=== PATIENT | female | born 1935 | race Caucasian/White ===

== ENCOUNTER → 2016-08-29 | Outpatient (CLI) | payer MEDICARE, BC ==
--- NOTE | 2016-08-30 09:43 | CR ---
EXAMINATION: Lumbar spine HISTORY: Low back pain COMPARISON: CT dated 06/30/2014 TECHNIQUE: AP and lateral views FINDINGS: There is stable bilateral fusion from L2 to S1. The osseous structures appear osteopenic. Interbody osseous fusion is noted at L5-S1. Overall the osseous structures are notable osteopenic. T he SI joints are symmetric. Bilateral partially visualized total hip hardware noted. There is a mild compression deformity at L1. IMPRESSION: 1. Mild compression deformity at L1, age indeterminate. 2. Stable posterior fusion from L2 to S1. 3. Generalized osteopenia.
== END | disposition home or self-care (01) ==
LOC: MW.CHPM 15:56
PROVIDERS: ATTEND Anesthesiology
DX: M54.5 Low back pain (principal); M43.8X6 Other specified deforming dorsopathies, lumbar region; M43.27 Fusion of spine, lumbosacral region; M85.88 Other specified disorders of bone density and structure, other site; M96.1 Postlaminectomy syndrome, not elsewhere classified; G89.4 Chronic pain syndrome; M54.17 Radiculopathy, lumbosacral region; Z87.39 Personal history of other diseases of the musculoskeletal system and connective tissue
CPT/HCPCS: 72100; 72100-26; 99214

== ENCOUNTER → 2016-09-26 | Outpatient (CLI) | payer MEDICARE, BC | LOC: MW.CHPM 08:00 | CPT/HCPCS: 99214 ==

== ENCOUNTER 2021-01-09 12:56 | Emergency (ER) | payer MEDICARE, BC ==
--- NOTE | 2021-01-09 13:04 | EDM.PDOC ---
ED HPI GENERAL MEDICAL PROBLEM - General Stated Complaint: FELL Time Seen by Provider: 01/09/21 13:00 Source of Information: Reports: Patient, EMS History Limitations: Reports: No Limitations - History of Present Illness INITIAL COMMENTS - FREE TEXT/NARRATIVE: 85-year-old female past medical history A. fib not on anticoagulation presents status post fall. History is from EMS and from patient. Patient states that she was making eggs for lunch when she turned around and fell. She landed on her back and did hit the back of her head. She was able to get up and was ambulatory after the fall. She is initially complaining of some back pain and notes that she has chronic back pain but states that the pain is since gone away. She denies any headaches. Denies any nausea or vomiting. Denies any on e-sided muscle weakness, facial droop, confusion, slurred speech, word finding difficulty. Denies any chest pain, shortness of breath, dizziness, lightheadedness before or after fall. lower back Pain Score (Numeric/FACES): 4 - Related Data Allergies Allergy/AdvReac Type Severity Reaction Status Date / Time No Known Allergies Allergy Verified 01/01/14 10:51 Home Meds: Home Meds Diltiazem [Cardizem CD] 180 mg PO DAILY 06/29/14 [History] Famotidine [Pepcid] 40 mg PO DAILY 06/29/14 [History] Hypromellose [Artificial Tears] 1 drop EYEBOTH TID 06/29/14 [History] Dextran 70/Hypromellose [Artificial Tears] 1 drop EYEBOTH TID 06/30/14 [History] polyethylene glycoL 3350 [MiraLAX] 17 gm PO DAILY 06/30/14 [History] carisoprodoL [Carisoprodol] 350 mg PO TID PRN #10 tablet 07/03/14 [Rx] FLUoxetine [PROzac] 01/09/21 [History] Pregabalin 01/09/21 [History] ED ROS GENERAL - Review of Systems Review Of Systems: Comprehensive ROS is negative, except as noted in HPI. ED EXAM, GENERAL - Physical Exam Exam: See Below Exam Limited By: No Limitations General Appearance: Alert, WD/WN, No Apparent Distress Eye Exam: Bilateral Eye: EOMI, PERRL Ears: Normal External Exam Nose: Normal Inspection Throat/Mouth: Normal Voice, No Airway Compromise Head: Atraumatic, Normocephalic Neck: Normal Inspection, Supple, Non-Tender Respiratory/Chest: No Respiratory Distress, Lungs Clear, Normal Breath Sounds, No Accessory Muscle Use Cardiovascular: Normal Peripheral Pulses, Regular Rate, Rhythm GI/Abdominal: Soft, Non-Tender Back Exam: Normal Inspection, Full Range of Motion. No: Vertebral Tenderness Extremities: Normal Inspection Neurological: Alert, Oriented, CN II-XII Intact, Normal Cognition, Normal Gait, No Motor/Sensory Deficits Psychiatric: Normal Affect, Normal Mood Skin Exam: Warm, Dry, Intact, Normal Color Course - Vital Signs Last Recorded V/S: Last Vital Signs Temp 98.1 F 01/09/21 14:12 Pulse 64 01/09/21 15:17 Resp 18 01/09/21 15:17 BP 149/67 H 01/09/21 15:17 Pulse Ox 97 01/09/21 15:17 - Re-Assessments/Exams Free Text/Narrative Re-Assessment/Exam: 01/09/21 13:04 Patient without signs of injury on physical exam. Considering patient's advanced age we will get head CT, cervical spine, lumbar spine CT imaging. We will follow up results and disposition accordingly. 01/09/21 15:[address] imaging; possible normal pressure hydrocephalus which was discussed with patient and recommend f/u PMD Departure - Departure Time of Disposition: 15:49 Disposition: Home, Self-Care 01 Condition: Good Clinical Impression: Fall Qualifiers: Encounter type: initial encounter Qualified Code(s): W19.XXXA - Unspecified fal l, initial encounter - Discharge Information Instructions: Chronic Back Pain Referrals: Kristofer Palmer MD [Primary Care Provider] - Additional Instructions: You were CT imaging does not show any evidence of bleeding in the brain, fractured bones, dislocated bones. Your head CT does show possible normal pr essure hydrocephalus. You should show these results to your primary care physician and discuss if they want to do any further work-up. The following information is given to patients seen in the emergency department who are being discharged to home. This information is to outline your options for follow-up care. We provide all patients seen in our emergency department with a follow-up referral. The need for follow-up, as well as the timing and circumstances, are variable depending upon the specifics of your emergency department visit. If you don't have a primary care physician on staff, we will provide you with a referral. We always advise you to contact your personal physician following an emergency department visit to inform them of the circumstance of the visit and for follow-up with them and/or the need for any referrals to a consulting specialist. The emergency department will also refer you to a specialist when appropriate. This referral assures that you have the opportunity for follow-up care with a specialist. All of these measure are taken in an effort to provide you with optimal care, which includes your follow-up. Under all circumstances we always encourage you to contact your private physician who remains a resource for coordinating your care. When calling for follow-up care, please make the office aware that this follow-up is from your recent emergency room visit. If for any reason you are refused follow-up, please contact the [facility] Emergency Department at and asked to speak to the emergency department charge nurse. Please follow up with your primary care physician. If you do not have a primary care physician, see below: [facility] [address] [place] [address] [id number] [facility] [address] [place] [id number] [facility] [address] [place] [id number] Sepsis Event Note (ED) - Focused Exam Vital Signs: Vital Signs Temp Pulse Resp BP Pulse Ox 01/09/21 15:17 64 18 149/67 H 97 01/09/21 14:12 98.1 F 68 18 155/72 H 98 01/09/21 13:10 97.6 F 68 18 160/69 H 98
--- NOTE | 2021-01-09 14:42 | CT ---
INDICATION: Trauma, fall with head injury. TECHNIQUE: CT head without contrast. COMPARISON: None. FINDINGS: CSF spaces: Moderate ventriculomegaly. Brain parenchyma and extra-axial spaces: Moderate atrophy. The walton-white differentiation is normal. No sign of mass, hemorrhage, or midline shift. No extra-axial fluid collection. Skull base and calvarium: The visualized paranasal sinuses and mastoid air cells demonstrate no acute or significant findings. The visualized orbits are grossly unremarkable. No skull fractures. IMPRESSION: No sign of acute injury. Moderate ventriculomegaly suggesting the possibility of normal pressure hydrocephalus. Please note that all CT scans at this facility use dose modulation, iterative reconstruction, and/or weight-based dosing when appropriate to reduce radiation dose to as low as reasonably achievable. Dictated by Bony Valladares MD @ 01/09/2021 2:40:[address] Bony Valladares @ Jan 09 2021 2:40PM
--- NOTE | 2021-01-09 14:46 | CT ---
INDICATION: Trauma, fall TECHNIQUE: CT cervical spine without contrast. COMPARISON: None FINDINGS: Vertebrae: Alignment is normal. There are no fractures. Few lytic areas in multiple vertebral bodies are indeterminate. Discs and facet joints: There are degenerative disc changes most severe at C5-6 and C6-7. There are multilevel degenerative changes in the facets. Extraspinal findings: Paraspinous soft tissues are unremarkable. IMPRESSION: 1. No sign of acute injury. 2. Multilevel degenerative spondylosis. Please note that all CT scans at this facility use dose modulation, iterative reconstruction, and/or weight-based dosing when appropriate to reduce radiation dose to as low as reasonably achievable. Dictated by Bony Valladares MD @ 01/09/2021 2:46:[address] Bony Valladares @ Jan 09 2021 2:46PM
--- NOTE | 2021-01-09 15:46 | CT ---
INDICATION: Patient fell today. Poor historian. TECHNIQUE: CT images were acquired through the lumbar spine. Axial coronal and sagittal reconstructions are obtained. FINDINGS: There is diffuse bone demineralization. Wide decompressive laminectomy extends from L2 through S1. Mature interbody and posterolateral fusion extends from L2-S1. This includes bilateral pedicle screws at each of the L2, L3, L4, L5 and S1 levels with associated connecting hardware. An compression fracture of L1 with approximately 40 percent loss of height anteriorly is associated with retrolisthesis of L1 on 2 at and advanced disc degeneration with vacuum phenomenon at L1-2. Radiolucency through the right L1 pedicle suggests previous placement of fixation screw. There are lucencies at the superior endplate of L2 and inferior endplate of L1 which may be Schmorl`s nodes or relate to prior hardware placement or inflammatory disk disease. At the L2-3 level interbody fusion bone appears solidly healed. The spinal canal and neural foramen are adequately patent. There are radiolucencies about the right L3 pedicle screw posteriorly. The screws appear in good position. At L3-4 solid interbody fusion bone. Spinal canal and neural foramen are adequately patent. At L4-5 interbody fusion bone is present. The spinal canal and neural foramen appear adequately patent. At L5-S1 interbody fusion bone. Preexistent grade 1 anterolisthesis. The spinal canal is adequately patent there is cephalocaudal narrowing of the right L5 neural foramina. There is deformity of the anterior cortical margin of the upper sacrum at the S1-S2 levels with pre osteal reaction consistent with old sacral insufficiency fracture. Multiple radiolucencies within the pelvic ilium and sacrum and lumbar vertebrae may reflect a diffuse osteoporosis but nonspecific. Impression : 1. Extensive postoperative changes include bilateral decompressive laminectomy L2 through S1, posterolateral pedicle screw hardware fusion at L2 through S1 and interbody fusion at 2 through S1. Bilateral total hip arthroplasties. 2. Chronic appearing compression fracture of L1 associated mild retrolisthesis and advanced disc degeneration at the L1-2 level. 3. Old healed sacral insufficiency fracture and associated anterior sacral cortical deformity. 4. Osteoporosis. 5. Right L5 bony foraminal stenosis. Please note that all CT scans at this facility use dose modulation, iterative reconstruction, and/or weight-based dosing when appropriate to reduce radiation dose to as low as reasonably achievable. Dictated by Francois Alvarez MD @ 01/09/2021 3:46:[address] Francois Alvarez @ Jan 09 2021 3:46PM
== END 2021-01-09 16:14 | disposition home or self-care (01) ==
LOC: MW.ED 12:56
DX: S09.90XA Unspecified injury of head, initial encounter (principal); W22.8XXA Striking against or struck by other objects, initial encounter
CPT/HCPCS: 70450; 70450-26; 72125; 72125-26; 72131; 72131-26; 99283; 99284-25

== ENCOUNTER 2021-04-28 12:05 | Emergency (ER) | payer MEDICARE, BC ==
--- NOTE | 2021-04-28 12:16 | PCM.EKG ---
#1 Interpretation EKG Interpretation Comments: April 28, 2021 12:06 PM EKG: As interpreted by ER physician: Manuela: Nonspecific ST-T wave abnormalities Normal axis No evidence of ST elevation VA atrial fibrillation with a rate of 50
--- NOTE | 2021-04-28 12:26 | EDM.PDOC ---
ED HPI GENERAL MEDICAL PROBLEM - General Chief Complaint: Chest Pain Stated Complaint: SOB Time Seen by Provider: 04/28/21 12:07 Source of Information: Reports: Patient History Limitations: Reports: No Limitations - History of Present Illness INITIAL COMMENTS - FREE TEXT/NARRATIVE: HISTORY AND PHYSICAL: History of present illness: Patient is an 85-year-old female who presents to the emergency room from [facility] whom has a history of chronic back pain and a-fib (not on anticoagulation therapy). She states over the past few days she has had some midsternal chest pain that is exacerbated with coughing and taking in deep breaths. She states she has scraped her knees from falling 2 days ago although does not request any imaging of this. She states she has had more frequent falls over the past several months and is having more time ambulating with her walker. Patient denies any fever, chills, headache, change in vision, syncope or near syncope. Denies any chest pain, back pain, shortness of breath or cough. Denies any abdominal pain, nausea, vomiting, diarrhea, constipation or dysuria. Has not noted any blood in urine or stool. Patient has been eating and drinking appropriately. No recent travel or sick contacts. Review of systems: As per history of present illness and below otherwise all systems reviewed and negative. Past medical history: As per history of present illness and as reviewed below otherwise noncontributory. Surgical history: As per history of present illness and as reviewed below otherwise noncontributory. Social history: See social history for further information Family history: As per history of present illness and as reviewed below otherwise noncontributory. Physical exam: General: Well developed and well nourished 85 year old female. Alert and orientated x 3. Nontoxic in appearance and in no acute distress. Vital signs are stable and have been reviewed by me. Nursing notes were reviewed. HEENT: Atraumatic, normocephalic, pupils equal and reactive bilaterally, negative for conjunctival pallor or scleral icterus, mucous membranes moist, neck supple, nontender, trachea midline. No drooling or trismus noted. No meningeal signs. No hot potato voice noted. Lungs: Slightly diminished to auscultation bilaterally. No wheezes, rales, or rhonchi. Chest nontender. Normal work of breathing, no accessory muscles used. Heart: S1S2, irregular rate and rhythm. No noted overt murmur, gallops, or rubs. No JVD. No peripheral edema Abdomen: Soft, nondistended, nontender. Normoactive bowel sounds. Negative for masses or costovertebral tenderness. C-spine/Back: No pinpoint vertebral tenderness upon palpation. No crepitus, step-offs or obvious deformities. Denies any urinary or fecal incontinence. Denies any numbness, tingling or saddle paresthesia. Skin: Intact, warm, dry. No lesions or rashes noted. Hematologic: No petechiae or purpra. Mucosa appropriate color and normal nail bed color and refill. Extremities: Moves all extremities per self without difficulty or deficits, negative for cords or calf pain. Neurovascular unremarkable. Neuro: Awake, alert, oriented. Cranial nerves II through XII unremarkable. Cerebellum unremarkable. Motor and sensory unremarkable throughout. Exam nonfocal. Psychiatric: Mood and affect are appropriate. Normal thought process. Answering questions appropriately. Please note that the patient was seen and evaluated during the 2019 SARS-CoV-2 novel coronavirus pandemic period. Community viral transmission is ongoing at time of this encounter and the emergency department is operating under pandemic response procedures. Medical Decision Making: Patient is an 85-year-old female who presents to the emergency room with complaints of midsternal chest pain over the past 2 to 3 days, worse this morning upon awakening. She states 2 or 3 days ago she had fallen onto her knees, states she tripped while in the bathroom. She did not hit her head or have any loss of consciousness. She was able to get up and continue with her day. Since that fall she has had mild midsternal chest pain. Has noticed she has felt increased fatigue and difficulty with her ADLs due to weakness. When she woke up this morning her chest pain had worsened, decided to call EMS for evaluation at the emergency room. Patient is alert, oriented and answering questions appropriately. Physical evaluation is unremarkable. She does not want any x-rays of bilateral knees (from fall). Chest x-ray shows possible mild congestion changes and small pleural effusions. Troponin is elevated at 3.149. BUN/Creat 29/1.4. Otherwise labs show no acute findings. Initial EKG does have artifact, please see note. Repeat EKG shows sinus rhythm with a rate of 75. Please see note. Negative COVID-19 testing. I have talked with the patient about today's findings, in addition to providing specific details for plan of care. Patient is a full code and would like to see cardiology. Reassessment at the time of disposition demonstrates that the patient is in no acute distress. Vital signs are stable. 1330: [facility] in [place] at capacity. Recommended to call other facilities to see if they have any beds available. If the status full they would discuss possible excepting at that time. 1340: Spoke with Dr Skinner, hospitalist, and Dr Sky, e business consultant at [facility]. Will get transfer crew ready. I did speak with the family and patient about location and need for transfer, they are agreeable. 1500: D-dimer is elevated. The transport crew is here. Do not want to delay transfer. Patient is on a heparin drip at this time. Will notify accepting physician of finding. Patient remained stable. Pain-free at this time. Vital signs are in appropriate range. Diagnostics: CBC, CMP, Troponin, EKG, CXR, COVID Therapeutics: ASA, Heparin, SL x 2 Impression: NSTEMI Plan: Transfer to [facility] Definitive disposition and diagnosis as appropriate pending reevaluation and review of above. chest Pain Score (Numeric/FACES): 5 - Related Data Allergies Allergy/AdvReac Type Severity Reaction Status Date / Time No Known Allergies Allergy Verified 01/01/14 10:51 Home Meds: Home Meds Diltiazem [Cardizem CD] 180 mg PO DAILY 06/29/14 [History] Amoxicillin 2,000 mg PO .ONETIME PRN 04/28/21 [History] FLUoxetine HCl [Fluoxetine HCl] 20 mg PO DAILY 04/28/21 [History] Pregabalin [Lyrica] 75 mg PO BID 04/28/21 [History] Past Medical History HEENT History: Reports: Hard of Hearing, Impaired Vision Cardiovascular History: Reports: Afib Respiratory History: Reports: None Gastrointestinal History: Reports: GERD Genitourinary History: Reports: None 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: Musculoskeletal History: Reports: Back Pain, Chronic Neurological History: Reports: None Psychiatric History: Reports: None Endocrine/Metabolic History: Reports: None Hematologic History: Reports: None Immunologic History: Reports: None Oncologic (Cancer) History: Reports: None Dermatologic History: Reports: None - Infectious Disease History Infectious Disease History: Reports: None - Past Surgical History Head Surgeries/Procedures: Reports: None HEENT Surgical History: Reports: None Cardiovascular Surgical History: Reports: None Musculoskeletal Surgical History: Reports: None Social & Family History - Family History Family Medical History: No Pertinent Family History - Caffeine Use Caffeine Use: Reports: None ED ROS GENERAL - Review of Systems Review Of Systems: Comprehensive ROS is negative, except as noted in HPI. ED EXAM, GENERAL - Physical Exam Exam: See Below (See dictation) Course - Vital Signs Last Recorded V/S: Last Vital Signs Temp 98.2 F 04/28/21 13:44 Pulse 81 04/28/21 14:39 Resp 18 04/28/21 14:39 BP 147/69 H 04/28/21 14:39 Pulse Ox 94 L 04/28/21 14:39 - Orders/Labs/Meds Orders: Active Orders 24 hr Category Date Time Status UA RFX DWIGHT AND CULT IF INDIC [URIN] Stat Lab 04/28/21 12:07 Ordered Heparin Sodium/0.45% NaCl [Heparin 25,000 Units in 1/2 Med 04/28/21 13:45 Active NS 500 ML] 500 ml IV TITRATE Sodium Chloride 0.9% [Saline Flush] Med 04/28/21 13:29 Active 10 ml FLUSH ASDIRECTED PRN Sodium Chloride 0.9% [Saline Flush] Med 04/28/21 13:29 Active 2.5 ml FLUSH ASDIRECTED PRN Saline Lock Insert [OM.PC] Stat Oth 04/28/21 13:29 Ordered Medication Orders Heparin Sodium/Sodium Chloride (Heparin 25,000 Units In 1/2 Ns 500 Ml) 500 mls @ 14.152 mls/hr IV TITRATE LORIE; Protocol Last Admin: 04/28/21 14:35 Dose: 12 units/kg/hr, 14.152 mls/hr Documented by: [email or web address] Cosigned by: URIELATIF Sodium Chloride (Sodium Chloride 0.9% 10 Ml Syringe) 10 ml FLUSH ASDIRECTED PRN PRN Reason: Keep Vein Open Last Admin: 04/28/21 14:37 Dose: 10 ml Documented by: YUMIKO Sodium Chloride (Sodium Chloride 0.9% 2.5 Ml Syringe) 2.5 ml FLUSH ASDIRECTED PRN PRN Reason: Keep Vein Open Last Admin: 04/28/21 14:37 Dose: 2.5 ml Documented by: [id number] Labs: Laboratory Tests 04/28/21 04/28/21 04/28/21 Range/Units 12:16 12:51 12:51 WBC 9.88 (4.0-11.0) K/uL RBC 3.88 L (4.30-5.90) M/uL Hgb 12.7 (12.0-16.0) g/dL Hct 36.9 (36.0-46.0) % MCV 95.1 (80.0-98.0) fL MCH 32.7 H (27.0-32.0) pg MCHC 34.4 (31.0-37.0) g/dL RDW Std Deviation 44.2 (28.0-62.0) fl RDW Coeff of Nelsy 13 (11.0-15.0) % Plt Count 404 H (150-400) K/uL MPV 9.70 (7.40-12.00) fL Neut % (Auto) 70.2 (48.0-80.0) % Lymph % (Auto) 13.4 L (16.0-40.0) % [place] % (Auto) 9.4 (0.0-15.0) % Eos % (Auto) 6.7 (0.0-7.0) % Baso % (Auto) 0.3 (0.0-1.5) % Neut # (Auto) 6.9 H (1.4-5.7) K/uL Lymph # (Auto) 1.3 (0.6-2.4) K/uL [place] # (Auto) 0.9 H (0.0-0.8) K/uL Eos # (Auto) 0.7 (0.0-0.7) K/uL Baso # (Auto) 0.0 (0.0-0.1) K/uL Nucleated RBC % 0.0 /100WBC Nucleated RBCs # 0 K/uL D-Dimer, Quantitative (0.0-0.50) mg/L FEU Sodium 139 (136-145) mmol/L Potassium 4.7 (3.5-5.1) mmol/L Chloride 103 (98-107) mmol/L Carbon Dioxide 23.6 (21.0-32.0) mmol/L BUN 29 H (7.0-18.0) mg/dL Creatinine 1.4 H (0.6-1.0) mg/dL Est Cr Clr Drug Dosing 28.34 mL/min Estimated GFR (MDRD) 35.9 ml/min Glucose 103 (74-106) mg/dL Calcium 8.7 (8.5-10.1) mg/dL Total Bilirubin 0.4 (0.2-1.0) mg/dL AST 29 (15-37) IU/L ALT 37 (14-63) IU/L Alkaline Phosphatase 77 (46-116) U/L Troponin I 3.149 H* (0.000-0.056) ng/mL Total Protein 6.9 (6.4-8.2) g/dL Albumin 2.8 L (3.4-5.0) g/dL Globulin 4.1 H (2.6-4.0) g/dL Albumin/Globulin Ratio 0.7 L (0.9-1.6) Influenza Type A RNA NEGATIVE (NEGATIVE) Influenza Type B RNA NEGATIVE (NEGATIVE) SARS-CoV-2 RNA (RAJANI) NEGATIVE (NEGATIVE) 04/28/21 Range/Units 13:20 WBC (4.0-11.0) K/uL RBC (4.30-5.90) M/uL Hgb (12.0-16.0) g/dL Hct (36.0-46.0) % MCV (80.0-98.0) fL MCH (27.0-32.0) pg MCHC (31.0-37.0) g/dL RDW Std Deviation (28.0-62.0) fl RDW Coeff of Nelsy (11.0-15.0) % Plt Count (150-400) K/uL MPV (7.40-12.00) fL Neut % (Auto) (48.0-80.0) % Lymph % (Auto) (16.0-40.0) % [place] % (Auto) (0.0-15.0) % Eos % (Auto) (0.0-7.0) % Baso % (Auto) (0.0-1.5) % Neut # (Auto) (1.4-5.7) K/uL Lymph # (Auto) (0.6-2.4) K/uL Bladen # (Auto) (0.0-0.8) K/uL Eos # (Auto) (0.0-0.7) K/uL Baso # (Auto) (0.0-0.1) K/uL Nucleated RBC % /100WBC Nucleated RBCs # K/uL D-Dimer, Quantitative 3.48 H (0.0-0.50) mg/L FEU Sodium (136-145) mmol/L Potassium (3.5-5.1) mmol/L Chloride (98-107) mmol/L Carbon Dioxide (21.0-32.0) mmol/L BUN (7.0-18.0) mg/dL Creatinine (0.6-1.0) mg/dL Est Cr Clr Drug Dosing mL/min Estimated GFR (MDRD) ml/min Glucose (74-106) mg/dL Calcium (8.5-10.1) mg/dL Total Bilirubin (0.2-1.0) mg/dL AST (15-37) IU/L ALT (14-63) IU/L Alkaline Phosphatase (46-116) U/L Troponin I (0.000-0.056) ng/mL Total Protein (6.4-8.2) g/dL Albumin (3.4-5.0) g/dL Globulin (2.6-4.0) g/dL Albumin/Globulin Ratio (0.9-1.6) Influenza Type A RNA (NEGATIVE) Influenza Type B RNA (NEGATIVE) SARS-CoV-2 RNA (RAJANI) (NEGATIVE) Meds: Medications Generic Name Dose Route Start Last Admin Trade Name Freq PRN Reason Stop Dose Admin Heparin Sodium/Sodium Chloride 500 mls @ 14.152 mls/hr 04/28/21 13:45 04/28/21 14:35 Heparin 25,000 Units In 1/2 Ns 500 Ml IV 12 units/kg/hr TITRATE LORIE 14.152 mls/hr Administration Protocol 12 UNITS/KG/HR Sodium Chloride 10 ml 04/28/21 13:29 04/28/21 14:37 Sodium Chloride 0.9% 10 Ml Syringe FLUSH 10 ml ASDIRECTED PRN Administration Keep Vein Open Sodium Chloride 2.5 ml 04/28/21 13:29 04/28/21 14:37 Sodium Chloride 0.9% 2.5 Ml Syringe FLUSH 2.5 ml ASDIRECTED PRN Administration Keep Vein Open Discontinued Medications Generic Name Dose Route Start Last Admin Trade Name Agusto PRN Reason Stop Dose Admin Aspirin 324 mg 04/28/21 13:28 04/28/21 14:32 Aspirin 81 Mg Tab.Chew PO 04/28/21 13:29 324 mg ONETIME ONE Administration Heparin Sodium (Porcine) 3,500 units 04/28/21 13:29 04/28/21 14:34 Heparin Sodium 5,000 Units/Ml Vial IVPUSH 04/28/21 13:30 3,500 units .BOLUS ONE Administration Departure - Departure Time of Disposition: 15:21 Disposition: DC/Tfer to Acute Hospital 02 Reason for Transfer *Q: Other (Cardiology) Condition: Undetermined Clinical Impression: NSTEMI (non-ST elevated myocardial infarction) Referrals: PCP,None [Primary Care Provider] - Forms: ED Department Discharge Sepsis Event Note (ED) - Focused Exam Vital Signs: Vital Signs Temp Pulse Resp BP Pulse Ox 04/28/21 14:39 81 18 147/69 H 94 L 04/28/21 13:44 98.2 F 82 18 133/68 94 L 04/28/21 12:05 96.0 F L 72 20 131/78 92 L - My Orders Last 24 Hours: My Active Orders 04/28/21 12:07 UA RFX DWIGHT AND CULT IF INDIC [URIN] Stat 04/28/21 13:29 Sodium Chloride 0.9% [Saline Flush] 10 ml FLUSH ASDIRECTED PRN Sodium Chloride 0.9% [Saline Flush] 2.5 ml FLUSH ASDIRECTED PRN Saline Lock Insert [OM.PC] Stat 04/28/21 13:45 Heparin Sodium/0.45% NaCl [Heparin 25,000 Units in 1/2 NS 500 ML] 500 ml IV TITRATE - Assessment/Plan Last 24 Hours: My Active Orders 04/28/21 12:07 UA RFX DWIGHT AND CULT IF INDIC [URIN] Stat 04/28/21 13:29 Sodium Chloride 0.9% [Saline Flush] 10 ml FLUSH ASDIRECTED PRN Sodium Chloride 0.9% [Saline Flush] 2.5 ml FLUSH ASDIRECTED PRN Saline Lock Insert [OM.PC] Stat 04/28/21 13:45 Heparin Sodium/0.45% NaCl [Heparin 25,000 Units in 1/2 NS 500 ML] 500 ml IV TITRATE
--- NOTE | 2021-04-28 12:56 | CR ---
INDICATION: Shortness of breath, chest pain TECHNIQUE: Chest 1 view. COMPARISON: 06/29/2014 FINDINGS: Cardiovascular and mediastinum: Heart size and vasculature are normal in caliber and appearance. Mediastinum is within normal limits. Lungs and pleural space: Possible mild congestive changes and small pleural effusions. No pneumothorax. Bones and soft tissues: No significant findings. IMPRESSION: Possible mild congestive changes and small pleural effusions. Dictated by Rishabh Massey MD @ 04/28/2021 12:55:55 PM (Electronically Signed)
[2021-04-28 13:02] LABS: CORONAVIRUS COVID-19 NAA NEGATIVE (NEGATIVE); INFLUENZA A NAA NEGATIVE (NEGATIVE); INFLUENZA B NAA NEGATIVE (NEGATIVE)
[2021-04-28 13:22] LABS: CARBON DIOXIDE,CO2 23.6 mmol/L (21.0-32.0); POTASSIUM,K 4.7 mmol/L (3.5-5.1)
[2021-04-28] MEDS ORDERED: Aspirin 81 MG Tab.Chew PO ONE (13:28)
[2021-04-28] MEDS ORDERED: Sodium Chloride 0.9% 2.5 ML Syringe FLUSH PRN (13:29)
[2021-04-28] MEDS ORDERED: Sodium Chloride 0.9% 10 ML Syringe FLUSH PRN (13:29)
[2021-04-28] MEDS ORDERED: Heparin Sodium 5,000 Units/ML Vial IVPUSH ONE (13:29)
[2021-04-28] MEDS ORDERED: Heparin Sodium/0.45% NaCl 500 ML IV SCH (13:45)
--- NOTE | 2021-04-28 14:36 | PCM.EKG ---
#1 Interpretation EKG Date: 04/28/21 Time: 14:23 Rhythm: NSR Rate (Beats/Min): 75 [place]: Normal P-Wave: Present QRS: Normal ST-T: Normal QT: Normal Comparison: Change From Previous EKG (A fib on todays ekg) EKG Interpretation Comments: Sinus Rhythm
== END 2021-04-28 15:45 ==
LOC: MW.ED 12:05
DX: I21.4 Non-ST elevation (NSTEMI) myocardial infarction (principal); Z20.822 Contact with and (suspected) exposure to COVID-19
CPT/HCPCS: 0240U; 36415; 71045; 80053; 84484; 85025; 85379; 93005; 96365; 99285; A9270; J1644